=== PATIENT | female | born 1940 | race Caucasian/White ===

== ENCOUNTER → 2016-09-26 | Outpatient (CLI) | payer MEDICARE, OTHER | LOC: MW.CHIM 08:00 | DX: I10 Essential (primary) hypertension (principal) | CPT/HCPCS: G0463 ==

== ENCOUNTER → 2016-10-30 | Outpatient (CLI) | payer MEDICARE, OTHER | LOC: MW.CHIM 08:15 | PROVIDERS: ATTEND Internal Medicine | DX: R07.89 Other chest pain (principal) | CPT/HCPCS: 36415; 80048 ==

== ENCOUNTER → 2016-10-31 | Outpatient (CLI) | payer MEDICARE, OTHER | LOC: MW.CHIM 13:14 | PROVIDERS: ATTEND Internal Medicine | DX: E78.5 Hyperlipidemia, unspecified (principal); I07.1 Rheumatic tricuspid insufficiency; I10 Essential (primary) hypertension | CPT/HCPCS: 36415; 80061; G0463 ==

== ENCOUNTER → 2016-11-27 | Outpatient (CLI) | payer MEDICARE, OTHER | LOC: MW.CHFP 08:00 | PROVIDERS: ATTEND Emergency Medicine | DX: Z23 Encounter for immunization (principal) | CPT/HCPCS: 90732; G0009 ==

== ENCOUNTER 2021-05-26 08:58 | Observation (INO) | payer MEDICARE, OTHER ==
[2021-05-26] MEDS ORDERED: Metoprolol Tartrate 5 MG/5 ML SDV IVPUSH ONE (09:39)
--- NOTE | 2021-05-26 09:41 | EDM.PDOC ---
ED HPI GENERAL MEDICAL PROBLEM - General Chief Complaint: Chest Pain Stated Complaint: FEVER,CHEST PAIN, SOB Time Seen by Provider: 05/26/21 09:38 Source of Information: Reports: Patient - History of Present Illness INITIAL COMMENTS - FREE TEXT/NARRATIVE: Patient presents with lightheadedness and palpitations. Patient has not been feeling well with palpitations and feeling winded and fatigue for a little while and then this morning she felt lightheaded had palpitations and the finger pulse ox heart rate went up to 160. The patient's granddaughter is a nurse practitioner noted a heart rate of 130. Patient denies any chest pain or pressure. Patient has never had a history of A. fib in the past. Patient did miss a single dose of metoprolol 25 mg last night but then took it this morning and still has the symptoms. Patient denies any thyroid problems. She drinks 4 cups of coffee a day no energy drinks. No [id number] decongestants. Patient has no history of blood clots. No leg swelling. No recent travel or injury or cancer or surgery. - Related Data Allergies Allergy/AdvReac Type Severity Reaction Status Date / Time Penicillins Allergy Hives Verified 05/26/21 09:26 Home Meds: Home Meds Aspirin [[place] Aspirin EC] 81 mg PO DAILY 05/31/15 [History] Calcium Carbonate/Vitamin D3 [Calcium 600-Vit D3 400 Tablet] 1 tab PO DAILY 05/31/15 [History] Ezetimibe/Simvastatin [Vytorin 10-40 mg Tablet] 1 tab PO DAILY 05/31/15 [History] Fish Oil/[place]-3 Fatty Acids [Fish Oil 1,000 MG] 1 tab PO DAILY 05/31/15 [History] Lisinopril 20 mg PO DAILY 05/31/15 [History] Multivitamin [Multivitamins] 1 tab PO DAILY 05/31/15 [History] Oxybutynin [Oxytrol For Women] 1 patch TRDERM ASDIRECTED 05/31/15 [History] Past Medical History HEENT History: Reports: None Cardiovascular History: Reports: High Cholesterol, Hypertension Respiratory History: Reports: None Gastrointestinal History: Reports: None 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 bladder 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: Musculoskeletal History: Reports: 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 Neurological History: Reports: None Psychiatric History: Reports: None Endocrine/Metabolic History: Reports: None Other Dermatologic History: precancerous lesion to face - Infectious Disease History Infectious Disease History: Reports: None - Past Surgical History Other Female Surgeries/Procedures: hx bladder surgery Social & Family History - Family History Family Medical History: No Pertinent Family History - Tobacco Use Tobacco Use Status *Q: Never Tobacco User - Caffeine Use Caffeine Use: Reports: Coffee - Recreational Drug Use Recreational Drug Use: No ED ROS GENERAL - Review of Systems Review Of Systems: Comprehensive ROS is negative, except as noted in HPI. ED EXAM, GENERAL - Physical Exam Exam: See Below Free Text/Narrative:: CONSTITUTIONAL: well appearing in no acute distress SKIN: Warm, dry, and intact without rash HENT: Normocephalic, atraumatic, PULMONARY: clear to ausculation bilaterally. No rales, rhonchi, wheezing CARDIOVASCULAR: Tachycardia, irregular rate and rhythm GASTROINTESTINAL: soft, nondistended, nontender NEUROLOGIC: normal speech, II-XII intact. Light touch and motor function grossly intact MUSCULOSKELETAL: no gross deformities, atraumatic PSYCHIATRIC: normal mood and affect #1 Interpretation Time: 09:40 EKG Interpretation Comments: 110, atrial fibrillation with rapid ventricular rate, nonspecific ST/T finding Course - Vital Signs Text/Narrative:: Differential diagnosis: New onset A. fib with RVR, PE, ACS, thyroid, dehydration, anemia, other Patient presents to the emergency department with symptoms as outlined above. Patient found to be in A. fib with RVR. Patient was initially going to get a dose of her metoprolol but became somewhat hypotensive. Patient was given IV fluid and calcium gluconate in preparation for a very small dose of diltiazem but her blood pressures improved and her heart rate improved into the low 100s. Patient otherwise is well-appearing and nontoxic. The remainder the work-up is effectively unremarkable. Admission for telemetry monitoring, rate control, m edication optimization continue treatment and management. Last Recorded V/S: Last Vital Signs Temp 36.8 C 05/26/21 08:58 Pulse 105 H 05/26/21 11:21 Resp 20 05/26/21 10:18 BP 127/60 05/26/21 11:21 Pulse Ox 96 05/26/21 11:21 - Orders/Labs/Meds Orders: Active Orders 24 hr Category Date Time Status Admission Status [Patient Status] [ADT] Stat ADT 05/26/21 12:10 Ordered Labs: Laboratory Tests 05/26/21 05/26/21 05/26/21 Range/Units 09:24 09:24 09:24 WBC 8.63 (4.0-11.0) K/uL RBC 4.44 (4.30-5.90) M/uL Hgb 13.7 (12.0-16.0) g/dL Hct 40.6 (36.0-46.0) % MCV 91.4 (80.0-98.0) fL MCH 30.9 (27.0-32.0) pg MCHC 33.7 (31.0-37.0) g/dL RDW Std Deviation 42.5 (28.0-62.0) fl RDW Coeff of Saqib 13 (11.0-15.0) % Plt Count 217 (150-400) K/uL MPV 10.80 (7.40-12.00) fL Neut % (Auto) 70.2 (48.0-80.0) % Lymph % (Auto) 20.5 (16.0-40.0) % [place] % (Auto) 7.5 (0.0-15.0) % Eos % (Auto) 1.6 (0.0-7.0) % Baso % (Auto) 0.2 (0.0-1.5) % Neut # (Auto) 6.1 H (1.4-5.7) K/uL Lymph # (Auto) 1.8 (0.6-2.4) K/uL [place] # (Auto) 0.7 (0.0-0.8) K/uL Eos # (Auto) 0.1 (0.0-0.7) K/uL Baso # (Auto) 0.0 (0.0-0.1) K/uL Nucleated RBC % 0.0 /100WBC Nucleated RBCs # 0 K/uL INR 0.97 Sodium 138 (136-145) mmol/L Potassium 3.5 (3.5-5.1) mmol/L Chloride 98 (98-107) mmol/L Carbon Dioxide 28.0 (21.0-32.0) mmol/L BUN 21 H (7.0-18.0) mg/dL Creatinine 1.1 H (0.6-1.0) mg/dL Est Cr Clr Drug Dosing 31.29 mL/min Estimated GFR (MDRD) 47.9 ml/min Glucose 117 H (74-106) mg/dL Calcium 10.1 (8.5-10.1) mg/dL Total Bilirubin 1.2 H (0.2-1.0) mg/dL AST 27 (15-37) IU/L ALT 25 (14-63) IU/L Alkaline Phosphatase 74 (46-116) U/L Troponin I < 0.050 (0.000-0.056) ng/mL B-Natriuretic Peptide (<100) PG/ML Total Protein 8.1 (6.4-8.2) g/dL Albumin 3.6 (3.4-5.0) g/dL Globulin 4.5 H (2.6-4.0) g/dL Albumin/Globulin Ratio 0.8 L (0.9-1.6) TSH, Ultra Sensitive 1.42 (0.36-3.74) uIU/mL SARS-CoV-2 RNA (VIRIDIANA) (NEGATIVE) 05/26/21 05/26/21 Range/Units 09:24 09:41 WBC (4.0-11.0) K/uL RBC (4.30-5.90) M/uL Hgb (12.0-16.0) g/dL Hct (36.0-46.0) % MCV (80.0-98.0) fL MCH (27.0-32.0) pg MCHC (31.0-37.0) g/dL RDW Std Deviation (28.0-62.0) fl RDW Coeff of Saqib (11.0-15.0) % Plt Count (150-400) K/uL MPV (7.40-12.00) fL Neut % (Auto) (48.0-80.0) % Lymph % (Auto) (16.0-40.0) % [place] % (Auto) (0.0-15.0) % Eos % (Auto) (0.0-7.0) % Baso % (Auto) (0.0-1.5) % Neut # (Auto) (1.4-5.7) K/uL Lymph # (Auto) (0.6-2.4) K/uL [place] # (Auto) (0.0-0.8) K/uL Eos # (Auto) (0.0-0.7) K/uL Baso # (Auto) (0.0-0.1) K/uL Nucleated RBC % /100WBC Nucleated RBCs # K/uL INR Sodium (136-145) mmol/L Potassium (3.5-5.1) mmol/L Chloride (98-107) mmol/L Carbon Dioxide (21.0-32.0) mmol/L BUN (7.0-18.0) mg/dL Creatinine (0.6-1.0) mg/dL Est Cr Clr Drug Dosing mL/min Estimated GFR (MDRD) ml/min Glucose (74-106) mg/dL Calcium (8.5-10.1) mg/dL Total Bilirubin (0.2-1.0) mg/dL AST (15-37) IU/L ALT (14-63) IU/L Alkaline Phosphatase (46-116) U/L Troponin I (0.000-0.056) ng/mL B-Natriuretic Peptide 167 H (<100) PG/ML Total Protein (6.4-8.2) g/dL Albumin (3.4-5.0) g/dL Globulin (2.6-4.0) g/dL Albumin/Globulin Ratio (0.9-1.6) TSH, Ultra Sensitive (0.36-3.74) uIU/mL SARS-CoV-2 RNA (VIRIDIANA) NEGATIVE (NEGATIVE) Meds: Medications Discontinued Medications Generic Name Dose Route Start Last Admin Trade Name Freq PRN Reason Stop Dose Admin Calcium Gluconate 1 gm 05/26/21 10:00 05/26/21 10:09 Calcium Gluconate 10% 1 Gm/10 Ml Sdv IVPUSH 05/26/21 10:01 1 gm ONETIME ONE Administration Sodium Chloride 500 mls @ 999 mls/hr 05/26/21 10:00 05/26/21 10:09 Normal Saline IV 05/26/21 10:30 999 mls/hr .BOLUS ONE Administration Metoprolol Tartrate 5 mg 05/26/21 09:39 05/26/21 10:14 Metoprolol Tartrate 5 Mg/5 Ml Sdv IVPUSH 05/26/21 09:40 Not Given ONETIME ONE Departure - Departure Time of Disposition: 12:13 Disposition: Refer to Observation Condition: Good Clinical Impression: Afib - Discharge Information Referrals: Constantine Martinez MD [Primary Care Provider] - Forms: ED Department Discharge Sepsis Event Note (ED) - Evaluation Sepsis Screening Result: No Definite Risk - Focused Exam Vital Signs: Vital Signs Temp Pulse Resp BP Pulse Ox 05/26/21 11:21 105 H 127/60 96 05/26/21 10:18 113 H 20 96 05/26/21 09:57 119 H 98/66 05/26/21 08:58 36.8 C 120 H 18 119/67 96 - My Orders Last 24 Hours: My Active Orders 05/26/21 12:10 Admission Status [Patient Status] [ADT] Stat - Assessment/Plan Last 24 Hours: My Active Orders 05/26/21 12:10 Admission Status [Patient Status] [ADT] Stat
[2021-05-26] MEDS ORDERED: Sodium Chloride 0.9% 500 ML IV ONE ×2 (10:00→15:00)
[2021-05-26] MEDS ORDERED: Calcium Gluconate 10% 1 GM/10 ML SDV IVPUSH ONE (10:00)
[2021-05-26 10:19] LABS: BLOOD UREA NITROGEN,BUN 21 mg/dL (7.0-18.0); CHLORIDE,CL 98 mmol/L (98-107); GLUCOSE RANDOM 117 mg/dL (74-106); POTASSIUM,K 3.5 mmol/L (3.5-5.1); SODIUM,NA 138 mmol/L (136-145)
--- NOTE | 2021-05-26 11:12 | CR ---
Indication: Shortness of breath Comparison: Two-view chest November 26, 2015 Technique: Single AP view chest Findings: There is hyperinflation and chronic interstitial change. There is no focal consolidation, effusion, or pneumothorax. Stable cardiac silhouette prominence. The bony thorax is grossly intact. Impression: Hyperinflation and chronic interstitial changes without dense consolidation. Dictated by Agapito Adames MD @ 05/26/2021 11:12:13 AM (Electronically Signed)
[2021-05-26] MEDS ORDERED: Ondansetron 4 MG/2 ML SDV IVPUSH PRN (14:57)
[2021-05-26] MEDS ORDERED: Lactated Ringers 1,000 ML IV ONE (14:57)
[2021-05-26] MEDS ORDERED: Pantoprazole 40 MG Vial IV SCH (15:00)
[2021-05-26] MEDS ORDERED: Albuterol/Ipratropium 4 GM Inhalation Spray INH PRN (15:00)
--- NOTE | 2021-05-26 15:04 | PCM.HP.2 ---
H&P History of Present Illness - General Date of Service: 05/26/21 Admit Problem/Dx: Admission Diagnosis/Problem Admission Diagnosis/Problem Atrial fibrillation - History of Present Illness Initial Comments - Free Text/Narative: Patient is a 80-year-old female with past medical history of hypertension, high cholesterol, history of palpitation not officially diagnosed with any dysrhythmia who presents with lightheadedness and palpitations. Patient reportedly has not been feeling very well for past few days and feels like she has no energy to do anything and feels quite tired and gets short of breath upon exertion. She had mentioned to her family that she was be in her recliner all day. This morning upon checking on finger pulse ox she was found to be tachycardic in 130s. Patient denies any chest pain denies any chest pressure denies any syncope. She tried to get into her primary care doctor's office but there were no walk-in appointments available so she came to the ER for further assessment. Patient did miss a single dose of metoprolol 25 mg last night but then took it this morning Patient denies any thyroid problems. She drinks 4 cups of coffee a day no energy drinks. Patient has no history of blood clots. No leg swelling. No recent travel or injury or cancer or surgery. In the ER p atient was found to be in A. fib with RVR with heart rate in 120s to 130s. Patient was hypotensive with systolic in 80s to 90s, so IV metoprolol was not given. Patient received IV fluid boluses which did improve the blood pressure as well as heart rate. Troponin was negative. Patient was admitted to the hospital for further management of her new onset A. fib RVR. - Related Data Allergies/Adverse Reactions: Allergies Allergy/AdvReac Type Severity Reaction Status Date / Time Penicillins Allergy Hives Verified 05/26/21 09:26 Home Medications: Home Meds Aspirin [[place] Aspirin EC] 81 mg PO DAILY 05/31/15 [History] Calcium Carbonate/Vitamin D3 [Calcium 600-Vit D3 400 Tablet] 1 tab PO DAILY 05/31/15 [History] Fish Oil/[place]-3 Fatty Acids [Fish Oil 1,000 MG] 1 tab PO DAILY 05/31/15 [History] Multivitamin [Multivitamins] 1 tab PO DAILY 05/31/15 [History] Metoprolol Succinate 25 mg PO DAILY 05/26/21 [History] Rosuvastatin [Crestor] 20 mg PO BEDTIME 05/26/21 [History] hydroCHLOROthiazide [Hydrochlorothiazide] 25 mg PO DAILY 05/26/21 [History] lisinopriL [Lisinopril] 20 mg PO DAILY 05/26/21 [History] polyethylene glycoL 3350 [MiraLAX] 17 gm PO DAILY 05/26/21 [History] Past Medical History HEENT History: Reports: None Cardiovascular History: Reports: High Cholesterol, Hypertension Respiratory History: Reports: None Gastrointestinal History: Reports: None 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 bladder 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: Musculoskeletal History: Reports: 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 Neurological History: Reports: None Psychiatric History: Reports: None Endocrine/Metabolic History: Reports: None Other Dermatologic History: precancerous lesion to face - Infectious Disease History Infectious Disease History: Reports: None - Past Surgical History Other Female Surgeries/Procedures: hx bladder surgery Social & Family History - Family History Family Medical History: No Pertinent Family History - Tobacco Use Tobacco Use Status *Q: Never Tobacco User - Caffeine Use Caffeine Use: Reports: Coffee - Recreational Drug Use Recreational Drug Use: No H&P Review of Systems - Review of Systems: Review Of Systems: See Below General: Reports: Malaise, Weakness, Fatigue. Denies: Fever, Chills HEENT: Denies: Contact Lenses, Dysphasia Cardiovascular: Reports: Palpitations, Dyspnea on Exertion. Denies: Chest Pain, Orthopnea Gastrointestinal: Reports: Constipation, Decreased Appetite. Denies: Abdominal Pain, Anorexia, Black Stool, Bloody Stool, Diarrhea Genitourinary: Denies: Dysuria, Frequency, Burning, Pain Musculoskeletal: Denies: Neck Pain, Shoulder Pain, Arm Pain Skin: Denies: Cyanosis, Jaundice, Mottled, Pallor Psychiatric: Denies: Depression, Mood Lability, Anxiety, Agitation Neurological: Denies: Confusion, Dizziness, Headache, Numbness Hematologic/Lymphatic: Denies: Easy Bleeding, Easy Bruising, Swollen Glands Exam - Exam Exam: See Below - Vital Signs Vital Signs: Last Vital Signs Temp 36.8 C 05/26/21 08:58 Pulse 86 05/26/21 14:51 Resp 20 05/26/21 10:18 BP 92/47 L 05/26/21 14:51 Pulse Ox 96 05/26/21 14:51 Weight: 77.111 kg - Exam General: Alert, Oriented Neck: Supple Lungs: Clear to Auscultation, Normal Respiratory Effort Cardiovascular: Irregular Rhythm, Tachycardia GI/Abdominal Exam: Normal Bowel Sounds, Soft, Non-Tender Back Exam: Normal Inspection Extremities: Normal Inspection, Normal Range of Motion, No Pedal Edema - Patient Data Lab Results Last 24 hrs: Laboratory Results - last 24 hr 05/26/21 05/26/21 05/26/21 Range/Units 09:24 09:24 09:24 WBC 8.63 (4.0-11.0) K/uL RBC 4.44 (4.30-5.90) M/uL Hgb 13.7 (12.0-16.0) g/dL Hct 40.6 (36.0-46.0) % MCV 91.4 (80.0-98.0) fL MCH 30.9 (27.0-32.0) pg MCHC 33.7 (31.0-37.0) g/dL RDW Std Deviation 42.5 (28.0-62.0) fl RDW Coeff of Saqib 13 (11.0-15.0) % Plt Count 217 (150-400) K/uL MPV 10.80 (7.40-12.00) fL Neut % (Auto) 70.2 (48.0-80.0) % Lymph % (Auto) 20.5 (16.0-40.0) % [place] % (Auto) 7.5 (0.0-15.0) % Eos % (Auto) 1.6 (0.0-7.0) % Baso % (Auto) 0.2 (0.0-1.5) % Neut # (Auto) 6.1 H (1.4-5.7) K/uL Lymph # (Auto) 1.8 (0.6-2.4) K/uL [place] # (Auto) 0.7 (0.0-0.8) K/uL Eos # (Auto) 0.1 (0.0-0.7) K/uL Baso # (Auto) 0.0 (0.0-0.1) K/uL Nucleated RBC % 0.0 /100WBC Nucleated RBCs # 0 K/uL INR 0.97 Sodium 138 (136-145) mmol/L Potassium 3.5 (3.5-5.1) mmol/L Chloride 98 (98-107) mmol/L Carbon Dioxide 28.0 (21.0-32.0) mmol/L BUN 21 H (7.0-18.0) mg/dL Creatinine 1.1 H (0.6-1.0) mg/dL Est Cr Clr Drug Dosing 31.29 mL/min Estimated GFR (MDRD) 47.9 ml/min Glucose 117 H (74-106) mg/dL Calcium 10.1 (8.5-10.1) mg/dL Total Bilirubin 1.2 H (0.2-1.0) mg/dL AST 27 (15-37) IU/L ALT 25 (14-63) IU/L Alkaline Phosphatase 74 (46-116) U/L Troponin I < 0.050 (0.000-0.056) ng/mL B-Natriuretic Peptide (<100) PG/ML Total Protein 8.1 (6.4-8.2) g/dL Albumin 3.6 (3.4-5.0) g/dL Globulin 4.5 H (2.6-4.0) g/dL Albumin/Globulin Ratio 0.8 L (0.9-1.6) TSH, Ultra Sensitive 1.42 (0.36-3.74) uIU/mL SARS-CoV-2 RNA (VIRIDIA[place]) (NEGATIVE) 05/26/21 05/26/21 Range/Units 09:24 09:41 WBC (4.0-11.0) K/uL RBC (4.30-5.90) M/uL Hgb (12.0-16.0) g/dL Hct (36.0-46.0) % MCV (80.0-98.0) fL MCH (27.0-32.0) pg MCHC (31.0-37.0) g/dL RDW Std Deviation (28.0-62.0) fl RDW Coeff of Saqib (11.0-15.0) % Plt Count (150-400) K/uL MPV (7.40-12.00) fL Neut % (Auto) (48.0-80.0) % Lymph % (Auto) (16.0-40.0) % [place] % (Auto) (0.0-15.0) % Eos % (Auto) (0.0-7.0) % Baso % (Auto) (0.0-1.5) % Neut # (Auto) (1.4-5.7) K/uL Lymph # (Auto) (0.6-2.4) K/uL [place] # (Auto) (0.0-0.8) K/uL Eos # (Auto) (0.0-0.7) K/uL Baso # (Auto) (0.0-0.1) K/uL Nucleated RBC % /100WBC Nucleated RBCs # K/uL INR Sodium (136-145) mmol/L Potassium (3.5-5.1) mmol/L Chloride (98-107) mmol/L Carbon Dioxide (21.0-32.0) mmol/L BUN (7.0-18.0) mg/dL Creatinine (0.6-1.0) mg/dL Est Cr Clr Drug Dosing mL/min Estimated GFR (MDRD) ml/min Glucose (74-106) mg/dL Calcium (8.5-10.1) mg/dL Total Bilirubin (0.2-1.0) mg/dL AST (15-37) IU/L ALT (14-63) IU/L Alkaline Phosphatase (46-116) U/L Troponin I (0.000-0.056) ng/mL B-Natriuretic Peptide 167 H (<100) PG/ML Total Protein (6.4-8.2) g/dL Albumin (3.4-5.0) g/dL Globulin (2.6-4.0) g/dL Albumin/Globulin Ratio (0.9-1.6) TSH, Ultra Sensitive (0.36-3.74) uIU/mL SARS-CoV-2 RNA (VIRIDIANA) NEGATIVE (NEGATIVE) Result Diagrams: 05/26/21 09:24 05/26/21 09:24 Sepsis Event Note - Evaluation Sepsis Screening Result: No Definite Risk - Focused Exam Vital Signs: Vital Signs Temp Pulse Resp BP Pulse Ox 05/26/21 14:51 86 92/47 L 96 05/26/21 14:21 91 85/45 L 95 05/26/21 13:51 103 H 81/41 L 94 L 05/26/21 13:21 115 H 111/47 L 96 05/26/21 13:04 109 H 110/56 L 96 05/26/21 12:21 116 H 96 05/26/21 11:51 105 H 101/65 96 05/26/21 11:21 105 H 127/60 96 05/26/21 10:18 113 H 20 96 05/26/21 09:57 119 H 98/66 05/26/21 08:58 36.8 C 120 H 18 119/67 96 - Problem List (1) HTN (hypertension) SNOMED Code(s): 21963542 ICD Code: I10 - ESSENTIAL (PRIMARY) HYPERTENSION Status: Acute Current Visit: Yes (2) HLD (hyperlipidemia) SNOMED Code(s): 07717063 ICD Code: E78.5 - HYPERLIPIDEMIA, UNSPECIFIED Status: Acute Current Visit: Yes (3) Afib SNOMED Code(s): 63495765 ICD Code: I48.91 - UNSPECIFIED ATRIAL FIBRILLATION Status: Acute Current Visit: Yes Problem List Initiated/Reviewed/Updated: Yes Orders Last 24hrs: Active Orders 24 hr Category Date Time Status Admission Status [Patient Status] [ADT] Stat ADT 05/26/21 12:10 Active Ambulate [RC] ASDIRECTED Care 05/26/21 14:57 Ordered Antiembolic Devices [RC] PER UNIT ROUTINE Care 05/26/21 14:58 Ordered Oxygen Therapy [RC] PRN Care 05/26/21 14:57 Ordered Pulse Oximetry [RC] PRN Care 05/26/21 14:57 Ordered RT Post Treatment Assessment [RC] Click to Edit Care 05/26/21 15:00 Ordered RT Pre-Treatment Assessment [RC] Click to Edit Care 05/26/21 15:00 Ordered VTE/DVT Education [RC] PER UNIT ROUTINE Care 05/26/21 14:57 Ordered Vital Signs [RC] Q4H Care 05/26/21 14:57 Ordered Heart Healthy Diet [DIET] Diet 05/26/21 Dinner Ordered Echo Comp wo Cont [US] Routine Exams 05/26/21 15:02 Ordered Albuterol/Ipratropium [Combivent Respimat] Med 05/26/21 15:00 Ordered See Dose Instructions INH Q4H PRN Aspirin [Halfprin] Med 05/27/21 09:00 Ordered 81 mg PO DAILY Calcium Carbonate/Vitamin D3 [Caltrate 600+D 1500 MG- Med 05/27/21 09:00 Ordered 400 Units] 1 tab PO DAILY Fish Oil/[place]-3 Fatty Acids [Fish Oil] Med 05/27/21 09:00 Ordered 1 gm PO DAILY Heparin Sodium Med 05/26/21 15:00 Ordered 5,000 units SUBCUT Q8H Lactated Ringers [Ringers, Lactated] 1,000 ml Med 05/26/21 14:57 Ordered IV BOLUS Metoprolol Succinate [Toprol XL] Med 05/27/21 09:00 Ordered 25 mg PO DAILY Ondansetron [Zofran] Med 05/26/21 14:57 Ordered 4 mg IVPUSH Q4H PRN Pantoprazole [ProTONIX IV] Med 05/26/21 15:00 Ordered 40 mg IV DAILY Rosuvastatin Med 05/26/21 21:00 Ordered 20 mg PO BEDTIME Sodium Chloride 0.9% [Normal Saline] 500 ml Med 05/26/21 15:00 Ordered IV .BOLUS Sequential Compression Device [OM.PC] Per Unit Routine Oth 05/26/21 14:57 Ordered Medication Orders Albuterol/Ipratropium (Albuterol/Ipratropium 4 Gm Inhalation [place]) 0 gm INH Q4H PRN PRN Reason: Dyspnea Aspirin (Aspirin 81 Mg Tab.Ec) 81 mg PO DAILY [facility] Calcium Carbonate (Calcium Carbonate/Vitamin D3 1500 Mg-400 Units Tab) 1 tab PO DAILY [facility]ENDA Fish Oil (Fish Oil/[place]-3 Fatty Acids 1 Gm Cap) 1 gm PO DAILY [facility] Heparin Sodium (Porcine) (Heparin Sodium 5,000 Units/Ml Vial) 5,000 units SUBCUT Q8H BRENDA Lactated Ringer's (Ringers, Lactated) 1,000 mls @ 999 mls/hr IV BOLUS ONE Stop: 05/26/21 15:57 Sodium Chloride (Normal Saline) 500 mls @ 999 mls/hr IV .BOLUS ONE Stop: 05/26/21 15:30 Last Admin: 05/26/21 15:03 Dose: Not Given Documented by: VLADIMIR Metoprolol Succinate (Metoprolol Succinate 25 Mg Tab.Er) 25 mg PO DAILY [facility] Non-Formulary Medication (Rosuvastatin) 20 mg PO BEDTIME BRENDA Ondansetron HCl (Ondansetron 4 Mg/2 Ml Sdv) 4 mg IVPUSH Q4H PRN PRN Reason: Nausea/Vomiting Pantoprazole Sodium (Pantoprazole 40 Mg Vial) 40 mg IV DAILY [facility] Assessment/Plan Comment:: Patient is a 80-year-old female admitted for A. fib RVR Patient's heart rate spontaneously started to resolve after IV fluid hydration, could be secondary to hypovolemic status Resume home meds including beta-mark IV Cardizem as needed for tachycardia greater than 120 Obtain follow-up troponin Obtain 2D echo Resume home meds as appropriate, hold off on other antihypertensive medications Watch blood pressure very closely Heart healthy diet Watch for fluid overload We will keep potassium more than 4 and magnesium more than 2 Will probably be needing to be started on anticoagulation for A. fib, will discuss with patient and family about initiation of blood thinner, for now we will continue on heparin for DVT prophylaxis Outpatient follow-up with cardiology
[2021-05-26] MEDS ORDERED: Potassium Chloride 10% 20 MEQ/15 ML Soln 30 ML UD Cup PO ONE (16:13)
[2021-05-26] MEDS ORDERED: Magnesium Sulfate/Water 2 GM in Premix Bag 1 BAG IV ONE (16:14)
[2021-05-26] MEDS: Heparin Sodium 5,000 Units/ML Vial SUBCUT SCH ×2 (16:22→23:04)
[2021-05-26] MEDS: Pantoprazole 40 MG in Sodium Chloride 0.9% 10 ML IV SCH (16:25)
[2021-05-26] MEDS ORDERED: Aspirin 81 MG Tab.Chew PO SCH (17:30)
[2021-05-26] MEDS: Rosuvastatin 10 MG Tab PO SCH (23:03)
[2021-05-27] MEDS: Heparin Sodium 5,000 Units/ML Vial SUBCUT SCH ×2 (06:12→15:37)
[2021-05-27 06:38] LABS: CARBON DIOXIDE,CO2 29.5 mmol/L (21.0-32.0); POTASSIUM,K 4.1 mmol/L (3.5-5.1)
[2021-05-27] MEDS: Fish Oil/Omega-3 Fatty Acids 1 Gm Cap PO SCH (09:01)
[2021-05-27] MEDS: Pantoprazole 40 MG in Sodium Chloride 0.9% 10 ML IV SCH (09:01)
[2021-05-27] MEDS: Calcium Carbonate/Vitamin D3 1500 MG-400 Units Tab PO SCH (09:01)
[2021-05-27] MEDS: Aspirin 81 MG Tab.EC PO SCH (09:01)
[2021-05-27] MEDS: Metoprolol Succinate 25 MG Tab.ER PO SCH (09:01)
[2021-05-27] MEDS: Polyethylene Glycol 3350 Powder 17 GM Packet PO SCH (11:43)
--- NOTE | 2021-05-27 15:50 | PCM.PN ---
- General Info Date of Service: 05/27/21 - Review of Systems Systems Review Comment:: feeling better, no chest pain, no palpitations - Patient Data Vitals - Most Recent: Last Vital Signs Temp 35.6 C L 05/27/21 15:40 Pulse 74 05/27/21 15:40 Resp 16 05/27/21 15:40 BP 121/68 05/27/21 15:40 Pulse Ox 96 05/27/21 15:40 Weight - Most Recent: 77.474 kg I&O - Last 24 Hours: Intake & Output 05/27/21 05/27/21 05/27/21 06:59 14:59 22:59 Intake Total 240 Output Total 450 Balance -210 Lab Results Last 24 Hours: Laboratory Results - last 24 hr 05/26/21 05/26/21 05/26/21 Range/Units 16:20 18:15 20:14 WBC (4.0-11.0) K/uL RBC (4.30-5.90) M/uL Hgb (12.0-16.0) g/dL Hct (36.0-46.0) % MCV (80.0-98.0) fL MCH (27.0-32.0) pg MCHC (31.0-37.0) g/dL RDW Std Deviation (28.0-62.0) fl RDW Coeff of Saqib (11.0-15.0) % Plt Count (150-400) K/uL MPV (7.40-12.00) fL Neut % (Auto) (48.0-80.0) % Lymph % (Auto) (16.0-40.0) % [place] % (Auto) (0.0-15.0) % Eos % (Auto) (0.0-7.0) % Baso % (Auto) (0.0-1.5) % Neut # (Auto) (1.4-5.7) K/uL Lymph # (Auto) (0.6-2.4) K/uL [place] # (Auto) (0.0-0.8) K/uL Eos # (Auto) (0.0-0.7) K/uL Baso # (Auto) (0.0-0.1) K/uL Nucleated RBC % /100WBC Nucleated RBCs # K/uL Sodium (136-145) mmol/L Potassium (3.5-5.1) mmol/L Chloride (98-107) mmol/L Carbon Dioxide (21.0-32.0) mmol/L BUN (7.0-18.0) mg/dL Creatinine (0.6-1.0) mg/dL Est Cr Clr Drug Dosing mL/min Estimated GFR (MDRD) ml/min Glucose (74-106) mg/dL Calcium (8.5-10.1) mg/dL Phosphorus (2.6-4.7) mg/dL Magnesium (1.8-2.4) mg/dL Troponin I 0.309 H* 0.377 H* (0.000-0.056) ng/mL Urine Color YELLOW Urine Appearance CLEAR Urine pH 6.0 (5.0-8.0) Ur Specific [place] 1.010 (1.001-1.035) Urine Protein NEGATIVE (NEGATIVE) mg/dL Urine Glucose (UA) NEGATIVE (NEGATIVE) mg/dL Urine Ketones NEGATIVE (NEGATIVE) mg/dL Urine Occult Blood SMALL H (NEGATIVE) Urine Nitrite NEGATIVE (NEGATIVE) Urine Bilirubin NEGATIVE (NEGATIVE) Urine Urobilinogen 0.2 (<2.0) EU/dL Ur Leukocyte Esterase TRACE H (NEGATIVE) Urine RBC 0-2 (0-2/HPF) Urine WBC 1-3 (0-5/HPF) Ur Epithelial Cells OCCASIONAL (NONE-FEW) Urine Bacteria RARE (NEGATIVE) Urine Mucus LIGHT (NONE-MOD) 05/27/21 05/27/21 05/27/21 Range/Units 02:00 05:30 05:30 WBC 4.94 (4.0-11.0) K/uL RBC 3.78 L (4.30-5.90) M/uL Hgb 11.6 L (12.0-16.0) g/dL Hct 35.0 L (36.0-46.0) % MCV 92.6 (80.0-98.0) fL MCH 30.7 (27.0-32.0) pg MCHC 33.1 (31.0-37.0) g/dL RDW Std Deviation 43.3 (28.0-62.0) fl RDW Coeff of Saqib 13 (11.0-15.0) % Plt Count 199 (150-400) K/uL MPV 10.60 (7.40-12.00) fL Neut % (Auto) 54.2 (48.0-80.0) % Lymph % (Auto) 32.8 (16.0-40.0) % [place] % (Auto) 8.1 (0.0-15.0) % Eos % (Auto) 4.5 (0.0-7.0) % Baso % (Auto) 0.4 (0.0-1.5) % Neut # (Auto) 2.7 (1.4-5.7) K/uL Lymph # (Auto) 1.6 (0.6-2.4) K/uL [place] # (Auto) 0.4 (0.0-0.8) K/uL Eos # (Auto) 0.2 (0.0-0.7) K/uL Baso # (Auto) 0.0 (0.0-0.1) K/uL Nucleated RBC % 0.0 /100WBC Nucleated RBCs # 0 K/uL Sodium 143 (136-145) mmol/L Potassium 4.1 (3.5-5.1) mmol/L Chloride 106 (98-107) mmol/L Carbon Dioxide 29.5 (21.0-32.0) mmol/L BUN 20 H (7.0-18.0) mg/dL Creatinine 1.0 (0.6-1.0) mg/dL Est Cr Clr Drug Dosing 36.08 mL/min Estimated GFR (MDRD) 53.5 ml/min Glucose 104 (74-106) mg/dL Calcium 8.7 (8.5-10.1) mg/dL Phosphorus 3.5 (2.6-4.7) mg/dL Magnesium 2.0 (1.8-2.4) mg/dL Troponin I 0.390 H* (0.000-0.056) ng/mL Urine Color Urine Appearance Urine pH (5.0-8.0) Ur Specific [place] (1.001-1.035) Urine Protein (NEGATIVE) mg/dL Urine Glucose (UA) (NEGATIVE) mg/dL Urine Ketones (NEGATIVE) mg/dL Urine Occult Blood (NEGATIVE) Urine Nitrite (NEGATIVE) Urine Bilirubin (NEGATIVE) Urine Urobilinogen (<2.0) EU/dL Ur Leukocyte Esterase (NEGATIVE) Urine RBC (0-2/HPF) Urine WBC (0-5/HPF) Ur Epithelial Cells (NONE-FEW) Urine Bacteria (NEGATIVE) Urine Mucus (NONE-MOD) Med Orders - Current: Current Medications Albuterol/Ipratropium (Albuterol/Ipratropium 4 Gm Inhalation [place]) 0 gm INH Q4H PRN PRN Reason: Dyspnea Aspirin (Aspirin 81 Mg Tab.Ec) 81 mg PO DAILY [facility] Last Admin: 05/27/21 09:01 Dose: 81 mg Documented by: Calcium Carbonate (Calcium Carbonate/Vitamin D3 1500 Mg-400 Units Tab) 1 tab PO DAILY [facility] Last Admin: 05/27/21 09:01 Dose: 1 tab Documented by: Fish Oil (Fish Oil/[place]-3 Fatty Acids 1 Gm Cap) 1 gm PO DAILY [facility] Last Admin: 05/27/21 09:01 Dose: 1 gm Documented by: Heparin Sodium (Porcine) (Heparin Sodium 5,000 Units/Ml Vial) 5,000 units SUBCUT Q8H [facility] Last Admin: 05/27/21 15:37 Dose: 5,000 units Documented by: Pantoprazole Sodium 40 mg/ (Sodium Chloride) 10 mls @ 300 mls/hr IV DAILY [facility] Last Admin: 05/27/21 09:01 Dose: 300 mls/hr Documented by: Metoprolol Succinate (Metoprolol Succinate 25 Mg Tab.Er) 25 mg PO DAILY [facility] Last Admin: 05/27/21 09:01 Dose: 25 mg Documented by: Ondansetron HCl (Ondansetron 4 Mg/2 Ml Sdv) 4 mg IVPUSH Q4H PRN PRN Reason: Nausea/Vomiting Polyethylene Glycol (Polyethylene Glycol 3350 Powder 17 Gm Packet) 17 gm PO DAILY [facility] Last Admin: 05/27/21 11:43 Dose: 17 gm Documented by: Rosuvastatin Calcium (Rosuvastatin 10 Mg Tab) 20 mg PO BEDTIME [facility] Last Admin: 05/26/21 23:03 Dose: 20 mg Documented by: Discontinued Medications Aspirin (Aspirin 81 Mg Tab.Chew) 162 mg PO DAILY [facility] Last Admin: 05/26/21 17:36 Dose: 162 mg Documented by: Calcium Gluconate (Calcium Gluconate 10% 1 Gm/10 Ml Sdv) 1 gm IVPUSH ONETIME ONE Stop: 05/26/21 10:01 Last Admin: 05/26/21 10:09 Dose: 1 gm Documented by: Sodium Chloride (Normal Saline) 500 mls @ 999 mls/hr IV .BOLUS ONE Stop: 05/26/21 10:30 Last Admin: 05/26/21 10:09 Dose: 999 mls/hr Documented by: Lactated Ringer's (Ringers, Lactated) 1,000 mls @ 999 mls/hr IV BOLUS ONE Stop: 05/26/21 15:57 Last Admin: 05/26/21 16:15 Dose: 999 mls/hr Documented by: Sodium Chloride (Normal Saline) 500 mls @ 999 mls/hr IV .BOLUS ONE Stop: 05/26/21 15:30 Last Admin: 05/26/21 15:03 Dose: Not Given Documented by: Magnesium Sulfate 2 gm/ Premix 50 mls @ 12.5 mls/hr IV ONETIME ONE Stop: 05/26/21 20:13 Last Admin: 05/26/21 17:08 Dose: 12.5 mls/hr Documented by: Metoprolol Tartrate (Metoprolol Tartrate 5 Mg/5 Ml Sdv) 5 mg IVPUSH ONETIME ONE Stop: 05/26/21 09:40 Last Admin: 05/26/21 10:14 Dose: Not Given Documented by: Potassium Chloride (Potassium Chloride 10% 20 Meq/15 Ml Soln 30 Ml Ud Cup) 40 meq PO ONETIME ONE Stop: 05/26/21 16:14 Last Admin: 05/26/21 16:22 Dose: 40 meq Documented by: - Exam General: Alert, Oriented Neck: Supple Lungs: Clear to Auscultation, Normal Respiratory Effort Cardiovascular: Regular Rate, Regular Rhythm GI/Abdominal Exam: Normal Bowel Sounds, Soft, Non-Tender Extremities: Non-Tender, No Pedal Edema Skin: Warm, Dry, Intact Neurological: No New Focal Deficit - Patient Data Lab Results Last 24 hrs: Laboratory Results - last 24 hr 05/26/21 05/26/21 05/26/21 Range/Units 16:20 18:15 20:14 WBC (4.0-11.0) K/uL RBC (4.30-5.90) M/uL Hgb (12.0-16.0) g/dL Hct (36.0-46.0) % MCV (80.0-98.0) fL MCH (27.0-32.0) pg MCHC (31.0-37.0) g/dL RDW Std Deviation (28.0-62.0) fl RDW Coeff of Saqib (11.0-15.0) % Plt Count (150-400) K/uL MPV (7.40-12.00) fL Neut % (Auto) (48.0-80.0) % Lymph % (Auto) (16.0-40.0) % [place] % (Auto) (0.0-15.0) % Eos % (Auto) (0.0-7.0) % Baso % (Auto) (0.0-1.5) % Neut # (Auto) (1.4-5.7) K/uL Lymph # (Auto) (0.6-2.4) K/uL [place] # (Auto) (0.0-0.8) K/uL Eos # (Auto) (0.0-0.7) K/uL Baso # (Auto) (0.0-0.1) K/uL Nucleated RBC % /100WBC Nucleated RBCs # K/uL Sodium (136-145) mmol/L Potassium (3.5-5.1) mmol/L Chloride (98-107) mmol/L Carbon Dioxide (21.0-32.0) mmol/L BUN (7.0-18.0) mg/dL Creatinine (0.6-1.0) mg/dL Est Cr Clr Drug Dosing mL/min Estimated GFR (MDRD) ml/min Glucose (74-106) mg/dL Calcium (8.5-10.1) mg/dL Phosphorus (2.6-4.7) mg/dL Magnesium (1.8-2.4) mg/dL Troponin I 0.309 H* 0.377 H* (0.000-0.056) ng/mL Urine Color YELLOW Urine Appearance CLEAR Urine pH 6.0 (5.0-8.0) Ur Specific [place] 1.010 (1.001-1.035) Urine Protein NEGATIVE (NEGATIVE) mg/dL Urine Glucose (UA) NEGATIVE (NEGATIVE) mg/dL Urine Ketones NEGATIVE (NEGATIVE) mg/dL Urine Occult Blood SMALL H (NEGATIVE) Urine Nitrite NEGATIVE (NEGATIVE) Urine Bilirubin NEGATIVE (NEGATIVE) Urine Urobilinogen 0.2 (<2.0) EU/dL Ur Leukocyte Esterase TRACE H (NEGATIVE) Urine RBC 0-2 (0-2/HPF) Urine WBC 1-3 (0-5/HPF) Ur Epithelial Cells OCCASIONAL (NONE-FEW) Urine Bacteria RARE (NEGATIVE) Urine Mucus LIGHT (NONE-MOD) 05/27/21 05/27/21 05/27/21 Range/Units 02:00 05:30 05:30 WBC 4.94 (4.0-11.0) K/uL RBC 3.78 L (4.30-5.90) M/uL Hgb 11.6 L (12.0-16.0) g/dL Hct 35.0 L (36.0-46.0) % MCV 92.6 (80.0-98.0) fL MCH 30.7 (27.0-32.0) pg MCHC 33.1 (31.0-37.0) g/dL RDW Std Deviation 43.3 (28.0-62.0) fl RDW Coeff of Saqib 13 (11.0-15.0) % Plt Count 199 (150-400) K/uL MPV 10.60 (7.40-12.00) fL Neut % (Auto) 54.2 (48.0-80.0) % Lymph % (Auto) 32.8 (16.0-40.0) % [place] % (Auto) 8.1 (0.0-15.0) % Eos % (Auto) 4.5 (0.0-7.0) % Baso % (Auto) 0.4 (0.0-1.5) % Neut # (Auto) 2.7 (1.4-5.7) K/uL Lymph # (Auto) 1.6 (0.6-2.4) K/uL [place] # (Auto) 0.4 (0.0-0.8) K/uL Eos # (Auto) 0.2 (0.0-0.7) K/uL Baso # (Auto) 0.0 (0.0-0.1) K/uL Nucleated RBC % 0.0 /100WBC Nucleated RBCs # 0 K/uL Sodium 143 (136-145) mmol/L Potassium 4.1 (3.5-5.1) mmol/L Chloride 106 (98-107) mmol/L Carbon Dioxide 29.5 (21.0-32.0) mmol/L BUN 20 H (7.0-18.0) mg/dL Creatinine 1.0 (0.6-1.0) mg/dL Est Cr Clr Drug Dosing 36.08 mL/min Estimated GFR (MDRD) 53.5 ml/min Glucose 104 (74-106) mg/dL Calcium 8.7 (8.5-10.1) mg/dL Phosphorus 3.5 (2.6-4.7) mg/dL Magnesium 2.0 (1.8-2.4) mg/dL Troponin I 0.390 H* (0.000-0.056) ng/mL Urine Color Urine Appearance Urine pH (5.0-8.0) Ur Specific [place] (1.001-1.035) Urine Protein (NEGATIVE) mg/dL Urine Glucose (UA) (NEGATIVE) mg/dL Urine Ketones (NEGATIVE) mg/dL Urine Occult Blood (NEGATIVE) Urine Nitrite (NEGATIVE) Urine Bilirubin (NEGATIVE) Urine Urobilinogen (<2.0) EU/dL Ur Leukocyte Esterase (NEGATIVE) Urine RBC (0-2/HPF) Urine WBC (0-5/HPF) Ur Epithelial Cells (NONE-FEW) Urine Bacteria (NEGATIVE) Urine Mucus (NONE-MOD) Result Diagrams: 05/27/21 05:30 05/27/21 05:30 Sepsis Event Note - Evaluation Sepsis Screening Result: No Definite Risk - Focused Exam Vital Signs: Vital Signs Temp Pulse Pulse Resp BP BP Pulse Ox 05/27/21 15:40 35.6 C L 74 16 121/68 96 05/27/21 09:01 66 120/58 L 05/27/21 07:59 36.3 C 66 16 120/58 L 95 05/27/21 04:00 36.8 C 86 16 124/57 L 95 - Problem List & Annotations (1) Afib SNOMED Code(s): 48568848 Code(s): I48.91 - UNSPECIFIED ATRIAL FIBRILLATION Status: Acute Current Visit: Yes - Problem List Review Problem List Initiated/Reviewed/Updated: Yes - My Orders Last 24 Hours: My Active Orders 05/27/21 11:15 polyethylene glycoL 3350 [MiraLAX] 17 gm PO DAILY 05/27/21 15:46 TROPONIN I [CHEM] Routine 05/28/21 05:11 BASIC METABOLIC PANEL,BMP [CHEM] AM CBC WITH AUTO DIFF [HEME] AM - Plan Plan:: Patient is a 80-year-old female admitted for A. fib RVR with troponin leak, current in sinus rhythm, will continue home dose metoprolol, holding other antihypertensive medications due to lower blodo pressures. Will monitor anth and likely discharge home tomorrow on anticoagulation.
[2021-05-27] MEDS: Rosuvastatin 10 MG Tab PO SCH (20:48)
[2021-05-28] MEDS: Heparin Sodium 5,000 Units/ML Vial SUBCUT SCH ×2 (00:09→06:18)
[2021-05-28 08:03] VITALS: BP 139/61; PULSE 88
[2021-05-28] MEDS: Calcium Carbonate/Vitamin D3 1500 MG-400 Units Tab PO SCH (08:03)
[2021-05-28] MEDS: Aspirin 81 MG Tab.EC PO SCH (08:03)
[2021-05-28] MEDS: Fish Oil/Omega-3 Fatty Acids 1 Gm Cap PO SCH (08:03)
[2021-05-28 08:04] LABS: CARBON DIOXIDE,CO2 28.5 mmol/L (21.0-32.0); POTASSIUM,K 4.2 mmol/L (3.5-5.1)
[2021-05-28] MEDS: Pantoprazole 40 MG in Sodium Chloride 0.9% 10 ML IV SCH (08:04)
[2021-05-28] MEDS: Polyethylene Glycol 3350 Powder 17 GM Packet PO SCH (08:04)
[2021-05-28] MEDS: Metoprolol Succinate 25 MG Tab.ER PO SCH (08:04)
--- NOTE | 2021-05-28 10:49 | PCM.DCSUM1 ---
Discharge Summary - Discharge Data Discharge Date: 05/28/21 Discharge Disposition: Home, Self-Care 01 Condition: Stable - Referral to Home Health Primary Care Physician: Constantine Martinez MD - Discharge Diagnosis/Problem(s) (1) Afib SNOMED Code(s): 36422277 ICD Code: I48.91 - UNSPECIFIED ATRIAL FIBRILLATION Status: Acute Current Visit: Yes - Patient Summary/Data Hospital Course: Patient is a 80-year-old female with past medical history of hypertension, high cholesterol, who is admitted with atrial fibrillation with rapid ventricular rate. Patient presented with palliations and feeling ill. In the ER patient was found to be in A. fib with RVR with heart rate in 120s to 130s. Patient was hypotensive with systolic in 80s to 90s, so IV metoprolol was not given. Patient received IV fluid boluses which did improve the blood pressure as well as heart rate. Troponin was initially negative but bumped to 0.309. The troponin leak was thought due to the fast heart rate. She was monitored on telemetetry and troponins stabalized on serial checks. Patient was placed back on here home dose of metoprolol but her HCTZ and lisinopril were held and then discontinued at discharge. Today she is feeling better and is in normal sinus rhythm. She is requesting discharge. She is to follow up [facility] Dr Martinez and Dr. Zaidi. She was started on Eliquis for stroke prevention. - Patient Instructions Diet: Heart Healthy Diet Other/Special Instructions: During your hospital stay you had some low blood pressures. Please stop taking lisinopril and hydroclorathiazide. Please check your blood pressure and heart rate daily and bring log to follow up appointment. Follow up with Dr. Martinez in two weeks. To prevent strokes from atrial fibrillation start Eliquis. Watch out for bleeding while on Eliquis. - Discharge Plan Prescriptions/Med Rec: Apixaban [Eliquis] 5 mg PO BID #60 tablet Home Medications: Home Meds Calcium Carbonate/Vitamin D3 [Calcium 600-Vit D3 400 Tablet] 1 tab PO DAILY 05/31/15 [History] Fish Oil/[place]-3 Fatty Acids [Fish Oil 1,000 MG] 1 tab PO DAILY 05/31/15 [History] Multivitamin [Multivitamins] 1 tab PO DAILY 11/02/15 [History] Metoprolol Succinate 25 mg PO DAILY 05/26/21 [History] Rosuvastatin [Crestor] 20 mg PO BEDTIME 05/26/21 [History] polyethylene glycoL 3350 [MiraLAX] 17 gm PO DAILY 05/26/21 [History] Apixaban [Eliquis] 5 mg PO BID #60 tablet 05/28/21 [Rx] Patient Handouts: How to Take Your Blood Pressure, [id number], Preventing High Cholesterol, Hypertension, Adult, [id number], Preventing Hypertension, Managing Your Hypertension, Atrial Fibrillation, [id number], Preventing Atrial Fibrillation-Related Stroke, High Cholesterol Referrals: Constantine Martinez MD [Primary Care Provider] - - Discharge Summary/Plan Comment DC Time >30 min.: No Total # of Minutes for Discharge Time: 20 - Patient Data Vitals - Most Recent: Last Vital Signs Temp 36.2 C 05/28/21 07:59 Pulse 88 05/28/21 08:04 Resp 16 05/28/21 07:59 BP 139/61 05/28/21 08:04 Pulse Ox 95 05/28/21 07:59 Weight - Most Recent: 77.474 kg I&O - Last 24 hours: Intake & Output 05/27/21 05/28/21 05/28/21 22:59 06:59 14:59 Intake Total 810 950 Output Total 1000 1550 Balance -190 -600 Lab Results - Last 24 hrs: Laboratory Results - last 24 hr 05/27/21 05/28/21 05/28/21 Range/Units 15:58 06:07 06:07 WBC 5.26 (4.0-11.0) K/uL RBC 3.92 L (4.30-5.90) M/uL Hgb 12.1 (12.0-16.0) g/dL Hct 36.1 (36.0-46.0) % MCV 92.1 (80.0-98.0) fL MCH 30.9 (27.0-32.0) pg MCHC 33.5 (31.0-37.0) g/dL RDW Std Deviation 42.8 (28.0-62.0) fl RDW Coeff of Saqib 13 (11.0-15.0) % Plt Count 201 (150-400) K/uL MPV 11.10 (7.40-12.00) fL Neut % (Auto) 57.9 (48.0-80.0) % Lymph % (Auto) 28.5 (16.0-40.0) % [place] % (Auto) 8.6 (0.0-15.0) % Eos % (Auto) 4.4 (0.0-7.0) % Baso % (Auto) 0.6 (0.0-1.5) % Neut # (Auto) 3.1 (1.4-5.7) K/uL Lymph # (Auto) 1.5 (0.6-2.4) K/uL [place] # (Auto) 0.5 (0.0-0.8) K/uL Eos # (Auto) 0.2 (0.0-0.7) K/uL Baso # (Auto) 0.0 (0.0-0.1) K/uL Nucleated RBC % 0.0 /100WBC Nucleated RBCs # 0 K/uL Sodium 140 (136-145) mmol/L Potassium 4.2 (3.5-5.1) mmol/L Chloride 103 (98-107) mmol/L Carbon Dioxide 28.5 (21.0-32.0) mmol/L BUN 18 (7.0-18.0) mg/dL Creatinine 1.0 (0.6-1.0) mg/dL Est Cr Clr Drug Dosing 36.08 mL/min Estimated GFR (MDRD) 53.5 ml/min Glucose 107 H (74-106) mg/dL Calcium 8.7 (8.5-10.1) mg/dL Troponin I 0.286 H* (0.000-0.056) ng/mL Med Orders - Current: Current Medications Albuterol/Ipratropium (Albuterol/Ipratropium 4 Gm Inhalation [place]) 0 gm INH Q4H PRN PRN Reason: Dyspnea Aspirin (Aspirin 81 Mg Tab.Ec) 81 mg PO DAILY [facility] Last Admin: 05/28/21 08:03 Dose: 81 mg Documented by: Calcium Carbonate (Calcium Carbonate/Vitamin D3 1500 Mg-400 Units Tab) 1 tab PO DAILY [facility] Last Admin: 05/28/21 08:03 Dose: 1 tab Documented by: Fish Oil (Fish Oil/[place]-3 Fatty Acids 1 Gm Cap) 1 gm PO DAILY [facility] Last Admin: 05/28/21 08:03 Dose: 1 gm Documented by: Heparin Sodium (Porcine) (Heparin Sodium 5,000 Units/Ml Vial) 5,000 units SUBCUT Q8H [facility] Last Admin: 05/28/21 06:18 Dose: 5,000 units Documented by: Pantoprazole Sodium 40 mg/ (Sodium Chloride) 10 mls @ 300 mls/hr IV DAILY [facility] Last Admin: 05/28/21 08:04 Dose: 300 mls/hr Documented by: Metoprolol Succinate (Metoprolol Succinate 25 Mg Tab.Er) 25 mg PO DAILY [facility] Last Admin: 05/28/21 08:04 Dose: 25 mg Documented by: Ondansetron HCl (Ondansetron 4 Mg/2 Ml Sdv) 4 mg IVPUSH Q4H PRN PRN Reason: Nausea/Vomiting Polyethylene Glycol (Polyethylene Glycol 3350 Powder 17 Gm Packet) 17 gm PO DAILY [facility] Last Admin: 05/28/21 08:04 Dose: 17 gm Documented by: Rosuvastatin Calcium (Rosuvastatin 10 Mg Tab) 20 mg PO BEDTIME [facility] Last Admin: 05/27/21 20:48 Dose: 20 mg Documented by: Discontinued Medications Aspirin (Aspirin 81 Mg Tab.Chew) 162 mg PO DAILY [facility] Last Admin: 05/26/21 17:36 Dose: 162 mg Documented by: Calcium Gluconate (Calcium Gluconate 10% 1 Gm/10 Ml Sdv) 1 gm IVPUSH ONETIME ONE Stop: 05/26/21 10:01 Last Admin: 05/26/21 10:09 Dose: 1 gm Documented by: Sodium Chloride (Normal Saline) 500 mls @ 999 mls/hr IV .BOLUS ONE Stop: 05/26/21 10:30 Last Admin: 05/26/21 10:09 Dose: 999 mls/hr Documented by: Lactated Ringer's (Ringers, Lactated) 1,000 mls @ 999 mls/hr IV BOLUS ONE Stop: 05/26/21 15:57 Last Admin: 05/26/21 16:15 Dose: 999 mls/hr Documented by: Sodium Chloride (Normal Saline) 500 mls @ 999 mls/hr IV .BOLUS ONE Stop: 05/26/21 15:30 Last Admin: 05/26/21 15:03 Dose: Not Given Documented by: Magnesium Sulfate 2 gm/ Premix 50 mls @ 12.5 mls/hr IV ONETIME ONE Stop: 05/26/21 20:13 Last Admin: 05/26/21 17:08 Dose: 12.5 mls/hr Documented by: Metoprolol Tartrate (Metoprolol Tartrate 5 Mg/5 Ml Sdv) 5 mg IVPUSH ONETIME ONE Stop: 05/26/21 09:40 Last Admin: 05/26/21 10:14 Dose: Not Given Documented by: Potassium Chloride (Potassium Chloride 10% 20 Meq/15 Ml Soln 30 Ml Ud Cup) 40 meq PO ONETIME ONE Stop: 05/26/21 16:14 Last Admin: 05/26/21 16:22 Dose: 40 meq Documented by:
--- NOTE | 2021-05-31 14:02 | ECHO ---
EXAM DATE: 05/26/21 PATIENT'S AGE: 80 The ECHO report has been scanned into [employer] and can be seen in this patient's EMR (Electronic Medical Record) under the REPORTS section. The report has also been scanned into PACS. JESS
== END 2021-05-28 11:20 | disposition home or self-care (01) ==
LOC: MW.ED 08:58 → MW.MS 12:10 → UNDOADMOB 12:36 → MW.MS 12:36
PROVIDERS: ADMIT Student in an Organized Health Care Education/Training Program; ATTEND Student in an Organized Health Care Education/Training Program
DX: I48.91 Unspecified atrial fibrillation (principal); I10 Essential (primary) hypertension; E78.00 Pure hypercholesterolemia, unspecified; Z88.0 Allergy status to penicillin; Z79.82 Long term (current) use of aspirin; Z79.899 Other long term (current) drug therapy; Z98.890 Other specified postprocedural states; Z20.822 Contact with and (suspected) exposure to COVID-19
CPT/HCPCS: 36415; 71045; 80048; 80053; 81001; 83735; 83880; 84100; 84443; 84484; 85025; 85610; 93005; 93306; 96374; 99285; A9270; C9113; J0610; J1644; J3475; J7030; J7120; U0002

== ENCOUNTER 2021-06-03 15:03 | Emergency (ER) | payer MEDICARE, OTHER ==
[2021-06-03 16:41] LABS: BLOOD UREA NITROGEN,BUN 20 mg/dL (7.0-18.0); CARBON DIOXIDE,CO2 29.4 mmol/L (21.0-32.0); CHLORIDE,CL 101 mmol/L (98-107); GLUCOSE RANDOM 118 mg/dL (74-106); POTASSIUM,K 4.2 mmol/L (3.5-5.1); SODIUM,NA 142 mmol/L (136-145)
--- NOTE | 2021-06-03 16:52 | EDM.PDOC ---
ED HPI GENERAL MEDICAL PROBLEM - General Chief Complaint: Chest Pain Stated Complaint: CHEST PAIN Time Seen by Provider: 06/03/21 16:36 - History of Present Illness INITIAL COMMENTS - FREE TEXT/NARRATIVE: History of present illness: [] The patient has chest pain that started at noon. At 11 AM she got her third dose [facility] vaccine. Then she had tightness in the neck and jaw. She had pain in her chest. It is moderately severe. It was associated with dyspnea. The patient did not have diaphoresis or nausea. The patient had a overnight admission on 1026 for atrial fibrillation with a bump in her troponin over 0.39 at the highest. This was felt to be due to demand ischemia because of the rate. She has a controlled rate and her troponin is elevated from labs done initially here today. Review of systems: As per history of present illness and below otherwise all systems reviewed and negative. Past medical history: As per history of present illness and as reviewed below otherwise noncontributory. Surgical history: As per history of present illness and as reviewed below otherwise noncontributory. Social history: No reported history of drug or alcohol abuse. Family history: As per history of present illness and as reviewed below otherwise noncontributory. Physical exam: Constitutional - well developed, well-nourished and in no acute distress HEENT - normocephalic, no evidence of trauma - external nose and mouth normal - no mass in neck and no JVD - mucosae moist EYES - full EOM, PERRL, no icterus - no evidence of inflammation, injection, or drainage Respiratory - no respiratory distress, equal bilateral expansion, lungs clear to auscultation and no abnormal lung sounds Cardiovascular - Regular Rhythm with S1 and S2 appreciated and no murmur, gallop or rub. GI - abdomen soft without distension or organomegaly - normal bowel sounds - no guard or rebound Musculoskeletal no gross deformity of long bones or joints - no tenderness, swelling or edema Neurologic - Alert and oriented times four - CN II-XII grossly intact - motor sensory and coordination symmetrically normal Psychiatric - appropriate mood and affect with normal thought content Hematologic - No petechiae or purpura - mucosa appropriate color and sclera not pale - normal nail bed color and refill Integument - no rash or evidence of trauma - normal turgor Diagnostics: [] Therapeutics: [] Impression: [] Plan: [] Definitive disposition and diagnosis as appropriate pending reevaluation and review of above. - Related Data Allergies Allergy/AdvReac Type Severity Reaction Status Date / Time Penicillins Allergy Hives Verified 06/03/21 15:09 Home Meds: Home Meds Calcium Carbonate/Vitamin D3 [Calcium 600-Vit D3 400 Tablet] 1 tab PO DAILY 05/31/15 [History] Fish Oil/[place]-3 Fatty Acids [Fish Oil 1,000 MG] 1 tab PO DAILY 05/31/15 [History] Multivitamin [Multivitamins] 1 tab PO DAILY 05/31/15 [History] Metoprolol Succinate 25 mg PO DAILY 05/26/21 [History] Rosuvastatin [Crestor] 20 mg PO BEDTIME 05/26/21 [History] polyethylene glycoL 3350 [MiraLAX] 17 gm PO DAILY 05/26/21 [History] Apixaban [Eliquis] 5 mg PO BID #60 tablet 05/28/21 [Rx] Past Medical History HEENT History: Reports: None Cardiovascular History: Reports: High Cholesterol, Hypertension Respiratory History: Reports: None Gastrointestinal History: Reports: None 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 bladder 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: Musculoskeletal History: Reports: Arthritis Neurological History: Reports: None Psychiatric History: Reports: None Endocrine/Metabolic History: Reports: None Other Dermatologic History: precancerous lesion to face - Infectious Disease History Infectious Disease History: Reports: None - Past Surgical History Other Female Surgeries/Procedures: hx bladder surgery Social & Family History - Family History Family Medical History: No Pertinent Family History - Caffeine Use Caffeine Use: Reports: Coffee ED ROS GENERAL - Review of Systems Review Of Systems: Comprehensive ROS is negative, except as noted in HPI. ED EXAM, GENERAL - Physical Exam Exam: See Below Free Text/Narrative:: My physical exam is in the HPI #1 Interpretation EKG Interpretation Comments: EKG done 06/03/21 at 3:09 PM sinus rhythm heart rate 78 VT 297 QT duration [address] [place] [address] and T compared to 05/26/2021 no change except the prior rhythm was junctional and no P wave is visible. Impression no acute injury. Course - Vital Signs Last Recorded V/S: Last Vital Signs Temp Pulse 83 06/03/21 16:35 Resp 18 06/03/21 16:35 BP 144/59 H 06/03/21 16:35 Pulse Ox 95 06/03/21 16:35 - Orders/Labs/Meds Orders: Active Orders 24 hr Category Date Time Status Sodium Chloride 0.9% [Normal Saline] 1,000 ml Med 06/03/21 16:55 Active IV .Bolus Medication Orders Sodium Chloride (Normal Saline) 1,000 mls @ 150 mls/hr IV .Bolus ONE Stop: 06/03/21 23:34 Labs: Laboratory Tests 06/03/21 06/03/21 Range/Units 16:04 16:04 WBC 9.88 (4.0-11.0) K/uL RBC 4.16 L (4.30-5.90) M/uL Hgb 12.7 (12.0-16.0) g/dL Hct 38.7 (36.0-46.0) % MCV 93.0 (80.0-98.0) fL MCH 30.5 (27.0-32.0) pg MCHC 32.8 (31.0-37.0) g/dL RDW Std Deviation 42.5 (28.0-62.0) fl RDW Coeff of Saqib 13 (11.0-15.0) % Plt Count 240 (150-400) K/uL MPV 9.90 (7.40-12.00) fL Neut % (Auto) 78.7 (48.0-80.0) % Lymph % (Auto) 11.0 L (16.0-40.0) % [place] % (Auto) 7.8 (0.0-15.0) % Eos % (Auto) 2.2 (0.0-7.0) % Baso % (Auto) 0.3 (0.0-1.5) % Neut # (Auto) 7.8 H (1.4-5.7) K/uL Lymph # (Auto) 1.1 (0.6-2.4) K/uL [place] # (Auto) 0.8 (0.0-0.8) K/uL Eos # (Auto) 0.2 (0.0-0.7) K/uL Baso # (Auto) 0.0 (0.0-0.1) K/uL Nucleated RBC % 0.0 /100WBC Nucleated RBCs # 0 K/uL Sodium 142 (136-145) mmol/L Potassium 4.2 (3.5-5.1) mmol/L Chloride 101 (98-107) mmol/L Carbon Dioxide 29.4 (21.0-32.0) mmol/L BUN 20 H (7.0-18.0) mg/dL Creatinine 1.2 H (0.6-1.0) mg/dL Est Cr Clr Drug Dosing TNP Estimated GFR (MDRD) 43.3 ml/min Glucose 118 H (74-106) mg/dL Calcium 9.9 (8.5-10.1) mg/dL Total Bilirubin 0.5 (0.2-1.0) mg/dL AST 28 (15-37) IU/L ALT 31 (14-63) IU/L Alkaline Phosphatase 72 (46-116) U/L Troponin I 0.127 H* (0.000-0.056) ng/mL Total Protein 7.8 (6.4-8.2) g/dL Albumin 3.7 (3.4-5.0) g/dL Globulin 4.1 H (2.6-4.0) g/dL Albumin/Globulin Ratio 0.9 (0.9-1.6) Meds: Medications Generic Name Dose Route Start Last Admin Trade Name Freq PRN Reason Stop Dose Admin Sodium Chloride 1,000 mls @ 150 mls/hr 06/03/21 16:55 Normal Saline IV 06/03/21 23:34 .Bolus ONE - Re-Assessments/Exams Free Text/Narrative Re-Assessment/Exam: 06/03/21 17:01 Troponin is elevated now. Is also been elevated 9 days ago when she had atrial for but a rapid rate and was ascribed to that. Wall motion study was normal on echo 1028. The patient's chest pain still raise the issue of non-STEMI and she hasn't had anatomic study of significance since the [address] Mckeon and Ronaldo at the [facility] and he agreed to accept the patient for transfer and further evaluation Departure - Departure Time of Disposition: 18:00 Disposition: DC/Tfer to Acute Hospital 02 Condition: Good Clinical Impression: Chest pain, Elevated troponin - Discharge Information Referrals: PCP,None [Primary Care Provider] - Forms: ED Department Discharge Sepsis Event Note (ED) - Evaluation Sepsis Screening Result: No Definite Risk - Focused Exam Vital Signs: Vital Signs Pulse Resp BP Pulse Ox 06/03/21 16:35 83 18 144/59 H 95 06/03/21 15:11 80 16 187/74 H 97 - My Orders Last 24 Hours: My Active Orders 06/03/21 16:55 Sodium Chloride 0.9% [Normal Saline] 1,000 ml IV .Bolus - Assessment/Plan Last 24 Hours: My Active Orders 06/03/21 16:55 Sodium Chloride 0.9% [Normal Saline] 1,000 ml IV .Bolus
[2021-06-03] MEDS ORDERED: Sodium Chloride 0.9% 1,000 ML IV ONE (16:55)
[2021-06-03] MEDS ORDERED: Nitroglycerin 0.4 MG Tab.SL SL PRN (17:16)
[2021-06-03] MEDS ORDERED: Ondansetron 4 MG/2 ML SDV IVPUSH ONE (17:53)
[2021-06-03] MEDS ORDERED: Morphine 4 MG/ML VIAL IVPUSH ONE (17:53)
[2021-06-03] MEDS ORDERED: Ondansetron 4 MG/2 ML SDV ONE (17:54)
[2021-06-03 18:09] VITALS: BP 127/61; PULSE 85
== END 2021-06-03 18:00 ==
LOC: MW.ED 15:03
DX: R07.9 Chest pain, unspecified (principal); R79.89 Other specified abnormal findings of blood chemistry; E78.00 Pure hypercholesterolemia, unspecified; I10 Essential (primary) hypertension; Z88.0 Allergy status to penicillin; Z79.01 Long term (current) use of anticoagulants; Z79.899 Other long term (current) drug therapy
CPT/HCPCS: 36415; 80053; 84484; 85025; 93005; 96374; 96375; 99285; A9270; J2270; J2405; J7030

== ENCOUNTER 2021-06-22 14:54 | Emergency (ER) | payer MEDICARE, OTHER ==
[2021-06-22] MEDS ORDERED: Aspirin 81 MG Tab.Chew PO ONE (14:59)
[2021-06-22] MEDS ORDERED: Nitroglycerin 0.4 MG Tab.SL SL PRN (14:59)
--- NOTE | 2021-06-22 15:02 | EDM.PDOC ---
ED HPI GENERAL MEDICAL PROBLEM - General Stated Complaint: TROUBLE BREATHING,CHEST PAIN Time Seen by Provider: 06/22/21 14:55 Source of Information: Reports: Patient History Limitations: Reports: No Limitations - History of Present Illness INITIAL COMMENTS - FREE TEXT/NARRATIVE: 80-year-old female past medical history hypertension, hyperlipidemia, atrial fibrillation on Eliquis presents for chest, jaw, shoulder pain. Pain started roughly 10 minutes prior to arrival. Of note patient was recently transferred from this emergency department to [place] for presumed ACS. She was found to have elevated troponin. At [facility] patient underwent CTA imaging of the chest which did not reveal pulmonary embolism. She underwent cardiac catheterization which did not reveal critical stenosis and no stents were placed. She was noted to have a mass in her left atrium. 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 As noted above she is on Eliquis, however, she started this medication recently as her atrial fibrillation is a new diagnosis. With her pain today she states it feels similar to last time she was admitted for heart attack. She does note some shortness of breath. throat Pain Score (Numeric/FACES): 6 - Related Data Allergies Allergy/AdvReac Type Severity Reaction Status Date / Time Penicillins Allergy Hives Verified 06/22/21 15:05 Home Meds: Home Meds Apixaban [Eliquis] 1 tab BID 06/22/21 [History] Calcium Carbonate 600 mg PO DAILY 06/22/21 [History] Furosemide 40 mg PO DAILY 06/22/21 [History] Magnesium Oxide [Magnesium] 400 mg PO DAILY 06/22/21 [History] Metoprolol Succinate [Toprol Xl] 25 mg PO BID 06/22/21 [History] Multivitamins [Children's Chewable Vitamin] 1 tab PO DAILY 06/22/21 [History] [place]-3 Fatty Acids/Fish Oil [Fish Oil 1,000 mg Capsule] 1 cap PO DAILY 06/22/21 [History] Polyethylene Glycol [Polyox Wsr-301] 17 gm PO DAILY 06/22/21 [History] Potassium Chloride [Klor-Con 10] 10 meq PO DAILY 06/22/21 [History] Rosuvastatin [Crestor] 20 mg PO DAILY 06/22/21 [History] lisinopriL [Lisinopril] 20 mg PO DAILY 06/22/21 [History] Past Medical History HEENT History: Reports: None Cardiovascular History: Reports: High Cholesterol, Hypertension Respiratory History: Reports: None Gastrointestinal History: Reports: None 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 bladder 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: Musculoskeletal History: Reports: Arthritis Neurological History: Reports: None Psychiatric History: Reports: None Endocrine/Metabolic History: Reports: None Other Dermatologic History: precancerous lesion to face - Infectious Disease History Infectious Disease History: Reports: None - Past Surgical History Other Female Surgeries/Procedures: hx bladder surgery Social & Family History - Family History Family Medical History: No Pertinent Family History - Caffeine Use Caffeine Use: Reports: Coffee ED ROS GENERAL - Review of Systems Review Of Systems: Comprehensive ROS is negative, except as noted in HPI. ED EXAM, GENERAL - Physical Exam Exam: See Below Exam Limited By: No Limitations General Appearance: Alert, WD/WN, No Apparent Distress Ears: Hearing Grossly Normal Throat/Mouth: Normal Oropharynx, Normal Voice, No Airway Compromise Head: Atraumatic, Normocephalic Respiratory/Chest: No Respiratory Distress, Lungs Clear, Normal Breath Sounds, No Accessory Muscle Use Cardiovascular: Normal Peripheral Pulses, Regular Rate, Rhythm, No Edema GI/Abdominal: Soft, Non-Tender Extremities: Normal Inspection Neurological: Alert Psychiatric: Normal Affect, Normal Mood Skin Exam: Warm, Dry, Intact, Normal Color #1 Interpretation EKG Date: 06/22/21 Time: 14:55 Rhythm: NSR Rate (Beats/Min): 99 [place]: Normal P-Wave: Present QRS: Normal ST-T: Other (minimal ELEAZAR leaedsd II, III, aVF; no reciprical depressions, does not meet STEMI criteria) QT: Normal AK/PQ Interval: 241 Comparison: Change From Previous EKG EKG Interpretation Comments: new minimal ELEAZAR in inferior leads without reciprocal depressions #2 Interpretation EKG Date: 06/22/21 Time: 17:35 Rhythm: Other (sinus tachycardia) Rate (Beats/Min): 143 [place]: Normal P-Wave: Present QRS: Normal QT: Normal AK/PQ Interval: 224 EKG Interpretation Comments: machine read as SVT; I think more consistent with sinus tach. Machine read as extensive anterior infarct; I don't see any large ELEAZAR, however I can appreciate small ELEAZAR leads V2, V3. Cardiology at [place] contacted within 5 min of EKG [facility] for cardiology interpretation given my uncertainty with this EKG. #3 Interpretation EKG Date: 06/22/21 Time: 17:41 Rhythm: A-Fib Rate (Beats/Min): 111 [place]: Normal QRS: Normal ST-T: Normal QT: Prolonged (540) Comparison: Change From Previous EKG EKG Interpretation Comments: atrial fibrillation Course - Vital Signs Last Recorded V/S: Last Vital Signs Temp 96.3 F L 06/22/21 15:02 Pulse 112 H 06/22/21 18:03 Resp 16 06/22/21 18:03 BP 118/72 06/22/21 18:03 Pulse Ox 97 06/22/21 18:03 - Orders/Labs/Meds Orders: Active Orders 24 hr Category Date Time Status Amiodarone In Dextrose,Iso-Osm [Nexterone in Dextrose Med 06/22/21 18:45 Active 360 MG/200 ML] 360 mg in 200 ml IV ASDIRECTED Nitroglycerin [Nitrostat] Med 06/22/21 14:59 Active 0.4 mg SL Q5M PRN Saline Lock Insert [OM.PC] Stat Oth 06/22/21 14:59 Ordered Medication Orders Amiodarone HCl/Dextrose (Nexterone In Dextrose 360 Mg/200 Ml) 360 mg in 200 mls @ 33.333 mls/hr IV ASDIRECTED BRENDA; Protocol Nitroglycerin (Nitroglycerin 0.4 Mg Tab.Sl) 0.4 mg SL Q5M PRN PRN Reason: Chest Pain Last Admin: 06/22/21 15:23 Dose: 0.4 mg Documented by: RUPA Labs: Laboratory Tests 06/22/21 06/22/21 06/22/21 Range/Units 11:07 15:07 15:07 WBC 10.79 (4.0-11.0) K/uL RBC 3.97 L (4.30-5.90) M/uL Hgb 12.5 (12.0-16.0) g/dL Hct 37.7 (36.0-46.0) % MCV 95.0 (80.0-98.0) fL MCH 31.5 (27.0-32.0) pg MCHC 33.2 (31.0-37.0) g/dL RDW Std Deviation 49.5 (28.0-62.0) fl RDW Coeff of Saqib 14 (11.0-15.0) % Plt Count 319 (150-400) K/uL MPV 9.60 (7.40-12.00) fL Neut % (Auto) 82.2 H (48.0-80.0) % Lymph % (Auto) 10.3 L (16.0-40.0) % [place] % (Auto) 5.7 (0.0-15.0) % Eos % (Auto) 1.5 (0.0-7.0) % Baso % (Auto) 0.3 (0.0-1.5) % Neut # (Auto) 8.9 H (1.4-5.7) K/uL Lymph # (Auto) 1.1 (0.6-2.4) K/uL [place] # (Auto) 0.6 (0.0-0.8) K/uL Eos # (Auto) 0.2 (0.0-0.7) K/uL Baso # (Auto) 0.0 (0.0-0.1) K/uL Nucleated RBC % 0.0 /100WBC Nucleated RBCs # 0 K/uL D-Dimer, Quantitative 3.74 H (0.0-0.50) mg/L FEU Sodium 136 (136-145) mmol/L Potassium 4.0 (3.5-5.1) mmol/L Chloride 100 (98-107) mmol/L Carbon Dioxide 31.9 (21.0-32.0) mmol/L BUN 21 H (7.0-18.0) mg/dL Creatinine 1.1 H (0.6-1.0) mg/dL Est Cr Clr Drug Dosing 29.79 mL/min Estimated GFR (MDRD) 47.9 ml/min Glucose 106 (74-106) mg/dL Calcium 9.8 (8.5-10.1) mg/dL Magnesium 2.2 (1.8-2.4) mg/dL Total Bilirubin 0.9 (0.2-1.0) mg/dL AST 45 H (15-37) IU/L ALT 64 H (14-63) IU/L Alkaline Phosphatase 92 (46-116) U/L Troponin I 0.128 H* (0.000-0.056) ng/mL Total Protein 8.1 (6.4-8.2) g/dL Albumin 3.5 (3.4-5.0) g/dL Globulin 4.6 H (2.6-4.0) g/dL Albumin/Globulin Ratio 0.8 L (0.9-1.6) SARS-CoV-2 RNA (VIRIDIANA) (NEGATIVE) 06/22/21 06/22/21 Range/Units 15:08 17:35 WBC (4.0-11.0) K/uL RBC (4.30-5.90) M/uL Hgb (12.0-16.0) g/dL Hct (36.0-46.0) % MCV (80.0-98.0) fL MCH (27.0-32.0) pg MCHC (31.0-37.0) g/dL RDW Std Deviation (28.0-62.0) fl RDW Coeff of Saqib (11.0-15.0) % Plt Count (150-400) K/uL MPV (7.40-12.00) fL Neut % (Auto) (48.0-80.0) % Lymph % (Auto) (16.0-40.0) % [place] % (Auto) (0.0-15.0) % Eos % (Auto) (0.0-7.0) % Baso % (Auto) (0.0-1.5) % Neut # (Auto) (1.4-5.7) K/uL Lymph # (Auto) (0.6-2.4) K/uL [place] # (Auto) (0.0-0.8) K/uL Eos # (Auto) (0.0-0.7) K/uL Baso # (Auto) (0.0-0.1) K/uL Nucleated RBC % /100WBC Nucleated RBCs # K/uL D-Dimer, Quantitative (0.0-0.50) mg/L FEU Sodium (136-145) mmol/L Potassium (3.5-5.1) mmol/L Chloride (98-107) mmol/L Carbon Dioxide (21.0-32.0) mmol/L BUN (7.0-18.0) mg/dL Creatinine (0.6-1.0) mg/dL Est Cr Clr Drug Dosing mL/min Estimated GFR (MDRD) ml/min Glucose (74-106) mg/dL Calcium (8.5-10.1) mg/dL Magnesium (1.8-2.4) mg/dL Total Bilirubin (0.2-1.0) mg/dL AST (15-37) IU/L ALT (14-63) IU/L Alkaline Phosphatase (46-116) U/L Troponin I 0.112 H* (0.000-0.056) ng/mL Total Protein (6.4-8.2) g/dL Albumin (3.4-5.0) g/dL Globulin (2.6-4.0) g/dL Albumin/Globulin Ratio (0.9-1.6) SARS-CoV-2 RNA (VIRIDIANA) NEGATIVE (NEGATIVE) Meds: Medications Generic Name Dose Route Start Last Admin Trade Name Freq PRN Reason Stop Dose Admin Amiodarone HCl/Dextrose 360 mg in 200 mls @ 33.333 mls/hr 06/22/21 18:45 Nexterone In Dextrose 360 Mg/200 Ml IV ASDIRECTED BRENDA Protocol 1 MG/MIN Nitroglycerin 0.4 mg 06/22/21 14:59 06/22/21 15:23 Nitroglycerin 0.4 Mg Tab.Sl SL 0.4 mg Q5M PRN Administration Chest Pain Discontinued Medications Generic Name Dose Route Start Last Admin Trade Name Freq PRN Reason Stop Dose Admin Aspirin 324 mg 06/22/21 14:59 06/22/21 15:14 Aspirin 81 Mg Tab.Chew PO 06/22/21 15:00 324 mg ONETIME ONE Administration Sodium Chloride 500 mls @ 999 mls/hr 06/22/21 15:33 06/22/21 15:36 Normal Saline IV 06/22/21 16:03 999 mls/hr STAT STA Administration Metoprolol Tartrate 5 mg/ 55 mls @ 100 mls/hr 06/22/21 18:22 Sodium Chloride IV 06/22/21 18:54 ONETIME ONE Amiodarone HCl 150 mg/ 103 mls @ 600 mls/hr 06/22/21 18:26 Dextrose/Water IV 06/22/21 18:36 .BOLUS ONE Amiodarone HCl/Dextrose 100 mls @ 600 mls/hr 06/22/21 18:26 Nexterone In Dextrose 150 Mg/100 Ml IV 06/22/21 18:35 ONETIME ONE Protocol Iopamidol 75 ml 06/22/21 17:04 06/22/21 17:04 Iopamidol 755 Mg/Ml 500 Ml Multipack Bottle IVPUSH 06/22/21 17:05 75 ml ONETIME STA Administration Morphine Sulfate 2 mg 06/22/21 15:53 06/22/21 16:00 Morphine 2 Mg/Ml Syringe IVPUSH 06/22/21 15:54 2 mg ONETIME ONE Administration Morphine Sulfate 2 mg 06/22/21 17:20 06/22/21 17:29 Morphine 2 Mg/Ml Syringe IVPUSH 06/22/21 17:21 2 mg ONETIME ONE Administration - Re-Assessments/Exams Free Text/Narrative Re-Assessment/Exam: 06/22/21 15:31 Patient felt worse after nitroglycerin; had drop in BP to 90s/40s, diaphoresis, and headache. Jaw/neck pain "maybe a little better". Will defer additional doses of nitroglycerin. Will give 500cc bolus. Will f/u labs and reassess/dispo 06/22/21 15:53 Patient's troponin is elevated. I will reach out to [facility] cardiology for disposition recommendations. 06/22/21 16:06 Dr. Hale cardiology at [place] recommends medical management, trending troponin, does not recommend heparin given the patient is on eliquis and has large left atrial clot. He recommends keeping the patient at our facility for observation. I will get a repeat troponin to ensure no great uptrending. Will get a CTA to ensure no pulmonary embolism. Morphine 2mg given which did help with patient's pain. 06/22/21 17:42 Patient's HR noted to increase to 140s; repeat EKG was performed. It showed machine read of SVT with acute [place]. My interpretation showed sinus tachycardia, and I did not appreciate STEMI. However patient's pain is increased with the elevated HR, so this information was communicated with electrician master Dr. Hale at [facility] and he recommended faxing the EKG reports and will get back soon. 06/22/21 18:[address] Hale who does not feel the EKGs show acute ischemic changes. Repeat troponin remains stable. Will reach out for transfer as I do think patient needs to be in an institution with cardiology coverage 06/22/21 18:[address] [facility] who does not have beds. I spoke with [facility] and texted their electrician master EKGs which he will review. Patient's HR has gone back into 130-40s. Will give metoprolol 5mg 06/22/21 18:[address] Abbasi electrician master at [facility] who recommends amiodarone bolus + drip. Ordered. Waiting to speak with hospitalist Dr. Alvarado for transfer. Departure - Departure Time of Disposition: 18:36 Disposition: DC/Tfer to Acute Hospital 02 Condition: Fair Clinical Impression: Demand ischemia, Atrial thrombosis - Discharge Information Referrals: Constantine Martinez MD [Primary Care Provider] - Critical Care Note - Critical Care Note Total Time (mins): 35 Sepsis Event Note (ED) - Focused Exam Vital Signs: Vital Signs Temp Pulse Resp BP BP Pulse Ox 06/22/21 18:03 112 H 16 118/72 97 06/22/21 17:30 106 H 16 93/57 L 95 06/22/21 17:01 100 16 93/66 99 06/22/21 16:43 116/58 L 06/22/21 16:28 91 16 109/62 99 06/22/21 16:06 88 90/60 06/22/21 15:55 90 17 98/56 L 98 06/22/21 15:43 97 19 86/45 L 90 L 06/22/21 15:27 101 H 19 127/71 94 L 06/22/21 15:23 127/71 06/22/21 15:02 96.3 F L 104 H 19 145/79 H 97 - My Orders Last 24 Hours: My Active Orders 06/22/21 14:59 Nitroglycerin [Nitrostat] 0.4 mg SL Q5M PRN Saline Lock Insert [OM.PC] Stat 06/22/21 18:45 Amiodarone In Dextrose,Iso-Osm [Nexterone in Dextrose 360 MG/200 ML] 360 mg in 200 ml IV ASDIRECTED - Assessment/Plan Last 24 Hours: My Active Orders 06/22/21 14:59 Nitroglycerin [Nitrostat] 0.4 mg SL Q5M PRN Saline Lock Insert [OM.PC] Stat 06/22/21 18:45 Amiodarone In Dextrose,Iso-Osm [Nexterone in Dextrose 360 MG/200 ML] 360 mg in 200 ml IV ASDIRECTED
--- NOTE | 2021-06-22 15:30 | CR ---
HISTORY: Chest pain COMPARISON: 05/26/2021 FINDINGS: A portable erect AP view of the chest was obtained at 15 10 hours. The lungs remain clear. No focal or diffuse infiltrates are present. There is no sign of pneumothorax or abnormality of the ribs to correlate with the history of chest pain. The heart remains normal in size. The mediastinum is normal in appearance. The osseous structures are normal in appearance for the patient`s age. IMPRESSION: Normal portable chest single view. Dictated by Jacob Hassan MD @ 06/22/2021 3:29:57 PM (Electronically Signed)
[2021-06-22] MEDS ORDERED: Sodium Chloride 0.9% 500 ML IV STA (15:33)
[2021-06-22 15:42] LABS: CARBON DIOXIDE,CO2 31.9 mmol/L (21.0-32.0)
[2021-06-22] MEDS ORDERED: Morphine 2 MG/ML SYRINGE IVPUSH ONE ×2 (15:53→17:20)
[2021-06-22] MEDS ORDERED: Iopamidol 755 MG/ML 500 ML Multipack Bottle IVPUSH STA (17:04)
--- NOTE | 2021-06-22 17:40 | CT ---
INDICATION: Chest pain, tachycardia, left atrial mass most likely representing hematoma per report from outside facility imaging TECHNIQUE: Contrast enhanced axial CT imaging through the chest, optimized for assessment of the pulmonary arterial tree. 75 mL Isovue 370 contrast agent was administered intravenously. Sagittal and coronal reconstructions are provided. COMPARISON: One-view chest radiograph 06/22/2021 FINDINGS: There is adequate opacification of the pulmonary arterial tree without evidence of thromboembolism. The main pulmonary artery is nonenlarged. The heart is normal in size. There is a small pericardial effusion. An approximately 5 x 3 x 2 cm nonenhancing low-density focus with smooth margins is noted in the posterior aspect of the left atrium. The thoracic aorta is normal in caliber. No lymphadenopathy is appreciated in the mediastinum. There is mild lingular atelectasis. The lungs are otherwise clear. There is no pleural effusion or pneumothorax. The thoracic osseous structures are unremarkable. No significant abnormality is demonstrated in the visualized upper abdomen. A 3.5 cm renal cortical cyst is noted in the right upper pole. IMPRESSION: 1. An approximately 5 x 3 x 2 cm nonenhancing low-density focus in the posterior aspect of the left atrium, presumably corresponding to atrial mass reported on outside imaging. 2. No evidence of pulmonary embolism. 3. Small pericardial effusion. Please note that all CT scans at this facility use dose modulation, iterative reconstruction, and/or weight-based dosing when appropriate to reduce radiation dose to as low as reasonably achievable. Dictated by Fuad Mckeon MD @ 06/22/2021 5:39:00 PM (Electronically Signed)
[2021-06-22] MEDS ORDERED: Metoprolol Tartrate 5 MG in Sodium Chloride 0.9% 50 ML IV ONE (18:22)
[2021-06-22] MEDS ORDERED: Amiodarone 150 MG in Dextrose 5% in Water 100 ML IV ONE ×2 (18:26)
[2021-06-22] MEDS ORDERED: Ondansetron 4 MG/2 ML SDV IVPUSH ONE (18:42)
[2021-06-22 21:18] VITALS: BP 106/60; PULSE 97
== END 2021-06-22 21:17 ==
LOC: MW.ED 14:54
DX: I24.8 Other forms of acute ischemic heart disease (principal); I51.3 Intracardiac thrombosis, not elsewhere classified; I10 Essential (primary) hypertension; E78.00 Pure hypercholesterolemia, unspecified; I48.91 Unspecified atrial fibrillation; R00.1 Bradycardia, unspecified; Z88.0 Allergy status to penicillin; Z79.01 Long term (current) use of anticoagulants; Z79.899 Other long term (current) drug therapy; Z20.822 Contact with and (suspected) exposure to COVID-19
CPT/HCPCS: 36415; 71045; 71275; 80053; 83735; 84484; 85025; 85379; 93005; 96365; 96366; 96375; 96376; 99285; A9270; J0282; J2270; J2405; J7040; Q9967; U0002